=== PATIENT | male | born 1935 | race Two or more races ===

== ENCOUNTER 2021-11-08 17:20 | Inpatient (IN) | payer BC, MEDICARE, OTHER ==
[~2021-11-08] VITALS: Ht 170.2 cm; Wt 78.9 kg
[2021-11-08 23:16] LABS: CHLORIDE 91 mEq/L (98-107)
[2021-11-08 23:22] LABS: BASOPHILS % 0.4 % (0.0-2.0); EOSINOPHILS % 1.1 % (0.0-5.0); HEMATOCRIT. 40.8 % (42.0-52.0); HEMOGLOBIN. 13.6 g/dL (14.0-18.0); LYMPHOCYTES % 19.9 % (20.0-50.0); MEAN CORPUSCULAR HEMOGLOBIN 31.7 pg (28.0-32.0); MEAN PLATELET VOLUME 7.6 fl (7.4-10.4); NEUTROPHILS % 66.6 % (40.0-76.0); PLATELET 175 x1000/uL (130-400); RED BLOOD CELL COUNT 4.29 mill/uL (4.7-6.1); RED CELL DISTRIBUTION WIDTH 13.9 % (11.6-14.6)
[2021-11-09 01:52] LABS: CLARITY URINE CLEAR (CLEAR); COLOR URINE YELLOW (YELLOW); KETONES URINE 2+ (NEGATIVE); LEUKOCYTE ESTERASE URINE NEGATIVE (NEGATIVE); NITRITE URINE NEGATIVE (NEGATIVE); OCCULT BLOOD URINE TRACE (NEGATIVE); PH URINE 6.5 (4.5-8.0); PROTEIN URINE 3+ (NEGATIVE); SPECIFIC GRAVITY URINE 1.019 (1.005-1.030); UROBILINOGEN URINE 0.2 E.U./dL (0.2-1.0)
[2021-11-09] MEDS ORDERED: ASPIRIN 325MG EC TABLET PO ONE (03:00)
[2021-11-09] MEDS ORDERED: ASPIRIN 325MG EC TABLET PO NR (07:15)
[2021-11-09] MEDS ORDERED: ONDANSETRON HCL 4MG/2ML INJ IV PRN (10:15)
[2021-11-09] MEDS ORDERED: MAGNESIUM/ALUMINUM HYDROXIDE/SIMETHICONE 30ML UDC PO PRN (10:15)
[2021-11-09] MEDS ORDERED: LORAZEPAM 0.5MG TABLET PO PRN (10:15)
[2021-11-09] MEDS ORDERED: GUAIFENESIN 200MG/10ML SUGAR FREE UDC PO PRN (10:15)
[2021-11-09] MEDS ORDERED: ACETAMINOPHEN 325MG TABLET PO PRN (10:15)
[2021-11-09] MEDS ORDERED: DIPHENHYDRAMINE 50MG/ML VIAL IV PRN (10:15)
[2021-11-09] MEDS ORDERED: ACETAMINOPHEN 650MG SUPP PR PRN (10:15)
[2021-11-09] MEDS ORDERED: HYDROCODONE/ACETAMINOPHEN 5/325MG TABLET PO PRN (10:15)
[2021-11-09] MEDS ORDERED: MORPHINE SULFATE 2 MG/ML CPJ (NOT FOR IM USE) IV PRN (10:15)
[2021-11-09] MEDS ORDERED: DOCUSATE SODIUM 100MG CAPSULE PO PRN (10:15)
[2021-11-09] MEDS ORDERED: NA PHOS,M-B/NA PHOS,DI-BA ENEMA 118ML PR PRN (10:15)
[2021-11-09] MEDS: DEXT 5%/0.9% NACL 1,000 ML IV SCH (10:26)
[2021-11-09 10:28] LABS: BG BASE EXCESS -1.8 mmol/L (-2.0-2.0); BG CARBOXYHEMOGLOBIN 0.1 % (0.5-1.5); BG DEOXYHEMOGLOBIN 6.7 % (0.0-5.0); BG HCO3 ACT 20.8 mmol/L (22.0-26.0); BG METHEMOGLOBIN 0.2 % (0.0-1.5); BG OXYGEN SATURATION 93.3 % (92.0-98.5); BG PCO2 30.1 mmHg (35.0-45.0); BG PH 7.458 (7.350-7.450); BG PO2 65.1 mmHg (75.0-100.0); BG SAMPLE SITE RIGHT BRACHIAL; BG TOTAL HEMOGLOBIN 15.2 g/dL (12.0-18.0); BG VENT MODE ROOM AIR
[2021-11-09] MEDS ORDERED: CEFTRIAXONE 1 G PREMIX 50 ML IV SCH (10:30)
[2021-11-09] MEDS ORDERED: AZITHROMYCIN 500MG/250ML 250 ML IV SCH (11:00)
[2021-11-09 12:48] LABS: BASOPHILS % 0.5 % (0.0-2.0); EOSINOPHILS % 0.5 % (0.0-5.0); HEMATOCRIT. 41.3 % (42.0-52.0); HEMOGLOBIN. 13.9 g/dL (14.0-18.0); LYMPHOCYTES % 15.1 % (20.0-50.0); MEAN CORPUSCULAR HEMOGLOBIN 31.7 pg (28.0-32.0); MEAN PLATELET VOLUME 7.5 fl (7.4-10.4); MONOCYTES % 12.5 % (2.0-8.0); NEUTROPHILS % 71.4 % (40.0-76.0); PLATELET 181 x1000/uL (130-400); RED CELL DISTRIBUTION WIDTH 13.7 % (11.6-14.6)
[2021-11-09 12:56] LABS: CHLORIDE 92 mEq/L (98-107)
[2021-11-09] MEDS: DEXAMETHASONE 10 MG/ML VIAL IV SCH (13:15)
[2021-11-09] MEDS ORDERED: NALOXONE HCL 0.4MG/ML VIAL IV PRN (15:30)
[2021-11-09 15:33] LABS: CREATINE KINASE 215 IU/L (39-308)
[2021-11-09 16:49] LABS: INR 0.9; PROTHROMBIN TIME 10.2 sec (9.6-11.0)
[2021-11-09] MEDS: LORAZEPAM 2MG/ML CPJ IV PRN (17:31)
[2021-11-09] MEDS ORDERED: LACTULOSE 20G/30ML UDC PO NR (17:45)
[2021-11-09] MEDS: DOCUSATE SODIUM 100MG CAPSULE PO SCH (17:50)
[2021-11-09] MEDS: CLONIDINE 0.1MG TABLET PO PRN (20:33)
[2021-11-09 20:46] VITALS: BP 164/88
[2021-11-09] MEDS: FAMOTIDINE 20MG TABLET PO SCH (22:06)
[2021-11-10 00:19] LABS: CREATINE KINASE 315 IU/L (39-308)
[2021-11-10 01:31] VITALS: BP 123/99
[2021-11-10 02:14] VITALS: BP 164/88
[2021-11-10] MEDS ORDERED: PRAV40TA58 MT (03:20)
[2021-11-10] MEDS ORDERED: TIMO5SOL8 EACHEYE (03:20)
[2021-11-10] MEDS ORDERED: VALS1TAB2 MT (03:20)
[2021-11-10] MEDS ORDERED: METO-396 MT (03:20)
[2021-11-10] MEDS: LORAZEPAM 2MG/ML CPJ IV PRN (03:37)
[2021-11-10] MEDS: ALBUTEROL 6.7GM HFA INHALER ORI SCH ×3 (03:37→22:49)
[2021-11-10 04:00] VITALS: BP 140/80
[2021-11-10] MEDS: DEXT 5%/0.9% NACL 1,000 ML IV SCH (06:11)
[2021-11-10 08:11] LABS: BASOPHILS % 0.2 % (0.0-2.0); HEMATOCRIT. 42.1 % (42.0-52.0); HEMOGLOBIN. 14.6 g/dL (14.0-18.0); LYMPHOCYTES % 11.7 % (20.0-50.0); MEAN CORPUSCULAR HEMOGLOBIN 32.5 pg (28.0-32.0); MEAN CORPUSCULAR VOLUME 93.7 fL (80.0-94.0); MEAN PLATELET VOLUME 8.3 fl (7.4-10.4); MONOCYTES % 14.9 % (2.0-8.0); NEUTROPHILS % 73.2 % (40.0-76.0); PLATELET 181 x1000/uL (130-400); RED BLOOD CELL COUNT 4.49 mill/uL (4.7-6.1); RED CELL DISTRIBUTION WIDTH 13.9 % (11.6-14.6)
[2021-11-10 08:25] LABS: CHLORIDE 94 mEq/L (98-107)
[2021-11-10] MEDS: DEXAMETHASONE 10 MG/ML VIAL IV SCH (09:41)
[2021-11-10] MEDS: ENOXAPARIN 40MG/0.4ML SYR SUBCUT SCH (09:43)
[2021-11-10] MEDS: DOCUSATE SODIUM 100MG CAPSULE PO SCH ×2 (09:45→17:00)
[2021-11-10 11:35] VITALS: BP 167/83
[2021-11-10 12:11] LABS: SODIUM URINE RANDOM 29 mEq/L
[2021-11-10] MEDS: CEFTRIAXONE 1,000 MG in DEXTROSE 5% WATER 50 ML IV SCH (12:19)
[2021-11-10] MEDS: AZITHROMYCIN 500MG in DEXTROSE 5% WATER 250ML IV SCH (12:20)
[2021-11-10 12:32] LABS: *BARBITURATES SCREEN URINE NEGATIVE (NEGATIVE); *BENZODIAZEPINES SCREEN URINE NEGATIVE (NEGATIVE); *COCAINE SCREEN URINE NEGATIVE (NEGATIVE)
[2021-11-10 12:33] LABS: *AMPHETAMINES SCREEN URINE NEGATIVE (NEGATIVE); CANNABINOID URINE SCREEN NEGATIVE (NEGATIVE); METHADONE URINE SCREEN NEGATIVE (NEGATIVE); OPIATES URINE SCREEN NEGATIVE (NEGATIVE); PHENCYCLIDINE URINE SCREEN NEGATIVE (NEGATIVE)
[2021-11-10] MEDS: RISPERIDONE 0.25MG TABLET PO SCH (14:58)
[2021-11-10 16:00] VITALS: BP 162/81
[2021-11-10 20:00] VITALS: BP 142/74
[2021-11-10] MEDS: FAMOTIDINE 20MG TABLET PO SCH (22:48)
[2021-11-11] VITALS: BP 139/81
[2021-11-11] MEDS: DEXT 5%/0.9% NACL 1,000 ML IV SCH (03:53)
[2021-11-11] MEDS: ALBUTEROL 6.7GM HFA INHALER ORI SCH (03:53)
[2021-11-11 04:00] VITALS: BP 150/75
[2021-11-11 06:44] LABS: CHLORIDE 95 mEq/L (98-107)
[2021-11-11 06:57] LABS: BASOPHILS % 0.1 % (0.0-2.0); HEMATOCRIT. 40.4 % (42.0-52.0); HEMOGLOBIN. 13.9 g/dL (14.0-18.0); MEAN CORPUSCULAR HEMOGLOBIN 31.9 pg (28.0-32.0); MEAN CORPUSCULAR VOLUME 92.9 fL (80.0-94.0); MONOCYTES % 9.5 % (2.0-8.0); NEUTROPHILS % 80.4 % (40.0-76.0); PLATELET 197 x1000/uL (130-400); RED BLOOD CELL COUNT 4.35 mill/uL (4.7-6.1); RED CELL DISTRIBUTION WIDTH 13.9 % (11.6-14.6)
[2021-11-11 08:00] VITALS: BP 117/76
[2021-11-11] MEDS: CEFTRIAXONE 1,000 MG in DEXTROSE 5% WATER 50 ML IV SCH (09:52)
[2021-11-11] MEDS: RISPERIDONE 0.25MG TABLET PO SCH (09:53)
[2021-11-11] MEDS: DEXAMETHASONE 10 MG/ML VIAL IV SCH (09:53)
[2021-11-11] MEDS: ENOXAPARIN 40MG/0.4ML SYR SUBCUT SCH (09:53)
[2021-11-11] MEDS: DOCUSATE SODIUM 100MG CAPSULE PO SCH ×2 (09:53→18:17)
[2021-11-11] MEDS: AZITHROMYCIN 500MG in DEXTROSE 5% WATER 250ML IV SCH (10:58)
[2021-11-11 12:26] VITALS: BP 146/78
[2021-11-11 16:00] VITALS: BP 160/83
[2021-11-11] MEDS: LORAZEPAM 2MG/ML CPJ IV PRN (17:46)
[2021-11-11 20:00] VITALS: BP 150/70
[2021-11-11] MEDS: FAMOTIDINE 20MG TABLET PO SCH (21:30)
[2021-11-11] MEDS: CLONIDINE 0.1MG TABLET PO PRN (21:30)
[2021-11-12] VITALS: BP 151/94
[2021-11-12 04:00] VITALS: BP 165/50
[2021-11-12] MEDS: CLONIDINE 0.1MG TABLET PO PRN (05:04)
[2021-11-12 07:46] LABS: CHLORIDE 99 mEq/L (98-107)
[2021-11-12 08:00] VITALS: BP 108/42
[2021-11-12] MEDS: CEFTRIAXONE 1,000 MG in DEXTROSE 5% WATER 50 ML IV SCH (08:16)
[2021-11-12 08:35] LABS: HEMATOCRIT 40.1 % (42.0-52.0); HEMOGLOBIN 13.8 g/dL (14.0-18.0); MEAN CORPUSCULAR HEMOGLOBIN 32.1 pg (28.0-32.0); MEAN CORPUSCULAR VOLUME 93.2 fL (80.0-94.0); PLATELET 191 x1000/uL (130-400); RED CELL DISTRIBUTION WIDTH 13.8 % (11.6-14.6)
[2021-11-12] MEDS: DOCUSATE SODIUM 100MG CAPSULE PO SCH ×2 (10:03→16:55)
[2021-11-12] MEDS: RISPERIDONE 0.25MG TABLET PO SCH (10:04)
[2021-11-12] MEDS: AZITHROMYCIN 500MG in DEXTROSE 5% WATER 250ML IV SCH (10:04)
[2021-11-12] MEDS: ENOXAPARIN 40MG/0.4ML SYR SUBCUT SCH (10:04)
[2021-11-12 12:00] VITALS: BP 110/58
[2021-11-12 16:00] VITALS: BP 128/58
[2021-11-12] MEDS ORDERED: LORAZEPAM 1MG TABLET PO SCH (16:45)
[2021-11-12] MEDS: ALBUTEROL 6.7GM HFA INHALER ORI SCH (17:00)
[2021-11-12 20:00] VITALS: BP 152/47
[2021-11-12] MEDS: FAMOTIDINE 20MG TABLET PO SCH (21:33)
[2021-11-13 00:22] VITALS: BP 147/50
[2021-11-13 04:00] VITALS: BP 152/61
[2021-11-13 08:00] VITALS: BP 145/83
[2021-11-13] MEDS: CEFTRIAXONE 1,000 MG in DEXTROSE 5% WATER 50 ML IV SCH (08:36)
[2021-11-13] MEDS: DOCUSATE SODIUM 100MG CAPSULE PO SCH ×2 (08:37→19:24)
[2021-11-13] MEDS: RISPERIDONE 0.25MG TABLET PO SCH (08:37)
[2021-11-13] MEDS: ENOXAPARIN 40MG/0.4ML SYR SUBCUT SCH (08:37)
[2021-11-13] MEDS: AZITHROMYCIN 500MG in DEXTROSE 5% WATER 250ML IV SCH (10:00)
[2021-11-13] MEDS ORDERED: POTASSIUM CHLORIDE 20MEQ TABLET SR PO SCH (11:30)
[2021-11-13 12:00] VITALS: BP 144/81
[2021-11-13] MEDS: ALBUTEROL 6.7GM HFA INHALER ORI SCH ×2 (12:06→19:24)
[2021-11-13 15:34] VITALS: BP 157/83
== END 2021-11-13 20:00 | DRG 177 ==
LOC: ER 17:20 → SUPCPDRO 11-09 13:22 → ENRESERV 11-09 19:31 → 7WST 11-09 21:42
PROVIDERS: ADMIT Internal Medicine; ATTEND Internal Medicine
DX: U07.1 COVID-19 (principal); J12.82 Pneumonia due to coronavirus disease 2019; E87.1 Hypo-osmolality and hyponatremia; G93.40 Encephalopathy, unspecified; D64.9 Anemia, unspecified; R09.02 Hypoxemia; I10 Essential (primary) hypertension; E88.09 Other disorders of plasma-protein metabolism, not elsewhere classified; F03.90 Unspecified dementia, unspecified severity, without behavioral disturbance, psychotic disturbance, mood disturbance, and anxiety; T50.2X5A Adverse effect of carbonic-anhydrase inhibitors, benzothiadiazides and other diuretics, initial encounter; Y92.89 Other specified places as the place of occurrence of the external cause
CPT/HCPCS: 36415; 36600; 71045; 72170; 80048; 80053; 80305; 81003; 82140; 82375; 82550; 82553; 82805; 83605; 83615; 83880; 83935; 84145; 84300; 84443; 84484; 85025; 85027; 86140; 87426; 93005; 93970; 99285; J0456; J0696; J1100; J1650; J2060; J7040; J7042; J7060